=== PATIENT | male | born 1950 | race Caucasian/White ===

== ENCOUNTER → 2016-05-10 | Outpatient (CLI) | payer MEDICARE, OTHER ==
--- NOTE | ~2016-05-10 | CT57 ---
[facility] A Service of [facility] RADIOLOGY TEXT RESULTS PATIENT: YAKELIN WESTON LOCATION: [facility] : 46 UNIT #: [id number] AGE: [address]: Trinidad Michel MD SEX: M ORDER DR: [id number] [address] [address] [id number] O MR#: [id number] #: [id number] NAME: YAKELIN WESTON : 1950 SEX: M STUDY DATE/TIME: 05/10/2016 12:20 UNIT: [facility] ROOM: STUDY DESCRIPTION: CT Chest Wo Cont Attending Physician: Trinidad Michel M.D. Referring Physician: Trinidad Michel M.D. Ordering Physician: Trinidad Michel M.D. Primary Care Physician: Trinidad Michel M.D. MEDICAL IMAGING REPORT This report is preliminary unless electronic signature is present. EXAM CT chest without contrast HISTORY 66-year-old male with abnormal chest x-ray with apparent chronic left lower lobe opacity. COMPARISON CT chest 03/12/2014 PA and lateral chest 05/08/2016 PA and lateral chest 03/09/[address] exam was performed with one or more of the following radiation dose reduction techniques: automatic control, adjustment of mA and/or kV according to patient size, and iterative reconstruction. FINDINGS Axial images performed through the chest without contrast. Multiplanar reconstructed images reviewed at a workstation. Examination demonstrates a left pleural effusion layering to a depth of close to 3 cm and extends over the lateral aspect of the left lung but overall is decreased when compared to the patient's CT in March 2014. There is continued left-sided volume loss with extensive parenchymal opacity left lower lobe with a small amount of left lower lobe bronchiectasis. The left lower lobe volume loss may be related to central obstruction or stenosis as there appears to be narrowing of the left lower lobe bronchus and there is a questionable mass or bronchial filling within the left lower lobe bronchus. Overall left basilar volume loss appears improved from the March 2014 study and the findings on the CT from March 2014 also suggested possible central bronchial obstruction or endobronchial lesion. Left upper lobe and right lung remain clear. Background parenchyma unremarkable. [facility]. [facility] A Service of [facility] RADIOLOGY TEXT RESULTS PATIENT: YAKELIN WESTON LOCATION: [facility] : 46 UNIT #: [id number] AGE: [address]: Trinidad Michel MD SEX: M ORDER DR: Cardiomegaly without failure. No significant mediastinal or hilar lymphadenopathy. Pacemaker generator noted over the left upper chest with pacemaker defibrillator leads in place. No pericardial effusion. Pulmonary arteries and aorta unremarkable. There are calcified right hilar nodes compatible with prior granulomatous disease. Visualized upper abdomen unremarkable. Osseous structures demonstrates diffuse degenerative changes throughout the thoracic spine with bridging osteophytes anterior may represent a component of DISH. There are multiple mild biconcave thoracic spine compression deformities. Thoracic inlet unremarkable. Bilateral gynecomastia. Heterogeneous soft tissue mass is seen in the left posterior chest wall which appears deep to the latissimus dorsi muscle and demonstrates calcifications. The mass measures over 17 cm in cephalocaudal dimension and right at 17 cm in medial to lateral dimension. This appears unchanged from prior studies and may represent a lymphatic or vascular lesion such as a lymphangioma or venous malformation. Utilizing a similar measurements from the 2014 study lesion does not appear increased in size. IMPRESSION 1. Chronic left lower lobe volume loss and lobar collapse which appears somewhat improved when compared to the patient's study from March 2014. Fullness about the left lower lobe bronchus raises a concern for obstructing mass or possible area of stenosis. Evaluation with bronchoscopy may be of benefit. Given the stability of the central obstructing lesion since 2014 I suspect this may represent a benign process but may contribute to significant morbidity. 2. Interval decrease in left pleural effusion. 3. Incidental complex soft tissue mass along the left posterior chest wall measuring well over 17 cm. Calcifications and mixed attenuation suggests a possible lymphatic lesion or venous malformation. This appears stable from March 2014. I would also favor a benign etiology. Dictated by... Nelson Justin M.D. THIS IS AN ELECTRONICALLY VERIFIED REPORT Nelson Justin M.D. at 05/11/2016 5:03 PM GABRIELLE/tessie TD: 05/10/2016 16:29 JOB #: [id number] MEDICAL IMAGING REPORT
== END | disposition home or self-care (01) ==
LOC: SCT 11:21
DX: R06.2 Wheezing (principal); J90 Pleural effusion, not elsewhere classified; J98.19 Other pulmonary collapse
CPT/HCPCS: 71250